=== PATIENT | male | born 1945 | race Caucasian/White ===

== ENCOUNTER 2017-02-15 07:00 | Inpatient (IN) | payer OTHER ==
[~2017-02-15] VITALS: Ht 177.8 cm; Wt 76.2 kg
--- NOTE | 2017-02-27 08:51 | Admission Core Measures ---
Admission Meds I reviewed the following Meds: Current Medications Sig/Giuliana Start time Last Medication Dose Stop Time Status Admin Acetaminophen 975 MG ONCE 02/27 NR (Tylenol) 02/27 2359 Cefazolin Sodium 2,000 MG ONCE 02/27 NR (Kefzol-Ancef Inj) 02/27 2359 Oxycodone HCl 10 MG ONCE 02/27 0000 NR (Roxicodone) 02/27 2359 Acute Coronary Syndrome Inclusion Criteria ACS Diagnosis No Inpatient Core Measures LDL Reminder: If No, please order W/I first 24hr of stay Congestive Heart Failure Inclusion Criteria CHF Diagnosis No Cerebrovascular accident Inclusion Criteria CVA/TIA Diagnosis No Inpatient Core Measures Bedside Swallow Eval Reminder: If BSE failed, place ST order Antithrombotic Reminder: Order Antithrombotic Medication by end of day 2 Antithrombotic Reminder: Document Reason Antithrombotic Not ordered by end of day 2 AFIB/Flutter Reminder: If Present, add to problem list AFIB/Flutter Reminder: Order Anticoag Medication for pts with AFIB/Flutter Atherosclerosis Reminder: If Present, add to problem list LDL Reminder: If No, please order W/I first 24hr of stay PT Order Reminder: If No, please order Venous thromboembolism Inpatient Core Measures VTE Risk Factors: Age > 40, [facility] prophylaxis d/t No contraindications No VTE Pharm Prophylaxis d/t No contraindications Inclusion Criteria - Per Current guidelines, there needs to be overlap - treatment for the first 5 days of Warfarin therapy. - Parenteral Anticoagulation (IV or SC) needs to be - given along with Warfarin therapy. VTE Diagnosis No VTE Type NONE VTE Confirmed by (Test) NONE Problem List As ranked by this Provider includes Assessment & Plan 1. Status post right hip replacement HOME MEDS Home Med List No Known Home Medications
--- NOTE | 2017-02-27 08:53 | Patient Discharge Instructions ---
Discharge Instructions General Discharge Information You were seen/treated for: Hip pain You had these procedures: Right total hip replacement Watch for these problems: temp>101, increased redness or drainage of wounds No bath, but you may shower: Yes Other wound care: Keep incisions clean and dry Special Instructions: Follow up with primary care physician within two weeks Diet Continue normal diet: Yes Activity Activity Self Limited: Yes Activity Limited to: Weight bear as tolerated Acute Coronary Syndrome Inclusion Criteria At DC or during hospital stay patient has or had the following: ACS DIAGNOSIS No Discharge Core Measures Meds if any: Prescribed or Continued at Discharge Meds if any: NOT Prescribed or Continued at Discharge Congestive Heart Failure Inclusion Criteria At DC or during hospital stay patient has or had the following: CHF DIAGNOSIS No Discharge Core Measures Meds if any: Prescribed or Continued at Discharge Meds if any: NOT Prescribed or Continued at Discharge Cerebrovascular accident Inclusion Criteria At DC or during hospital stay patient has or had the following: CVA/TIA Diagnosis No Discharge Core Measures Meds if any: Prescribed or Continued at Discharge Meds if any: NOT Prescribed or Continued at Discharge Venous thromboembolism Inclusion Criteria VTE Diagnosis No VTE Type NONE VTE Confirmed by (Test) NONE Discharge Core Measures - Per Current guidelines, there needs to be overlap - treatment for the first 5 days of Warfarin therapy. - If discharged on Warfarin prior to 5 days of - overlap therapy, the patient will need to be - assessed for post discharge needs including - *Post discharge parental anticoagulation - *Warfarin and/or parental anticoagulation education - *Follow up date to check INR post discharge At least 5 days overlap therapy as Inpatient No Meds if any: Prescribed or Continued at Discharge Note: Overlap Therapy is Warfarin and Anticoagulant Meds if any: NOT Prescribed or Continued at Discharge
[2017-02-27] MEDS ORDERED: ASPIRIN EC325 M2 PO ×2 (08:54→08:57)
[2017-02-27] MEDS ORDERED: COLACE100 M1 PO ×2 (08:54→08:57)
[2017-02-27] MEDS ORDERED: MIRALAX17 G1 PO ×2 (08:55→08:57)
[2017-02-27] MEDS ORDERED: MS CONTIN15 M2 PO ×2 (08:56→09:32)
[2017-02-27] MEDS ORDERED: DILAUDID2 M1 PO ×2 (08:56→09:31)
--- NOTE | 2017-02-27 09:53 | Surg Short-stay <48hrs Dis Sum ---
Visit Information Visit Dates Admission Date: 02/27/17 Discharge Date: 02/27/17 Surgical Short Stay DC Summary Admission Diagnosis: Joint pain Final Diagnosis: same, s/p R THR Procedure(s): R THR - see operative report Summary/Significant Findings: Pt underwent R VIANEY by Dr Shepard on 02/27. He tolerated the procedure well and was brought to the PACU in stable condition. Post op he was able to void spontaneously, his pain was well controlled with medication and he worked with physical therapy. He was deemed stable for discharge and was cleared by PT to go home with services. Follow up instructions given. Condition at Discharge: good Discharge Disposition: home health services Discharge instructions provided to patient/family: Yes Post discharge follow-up plan: Keep scheduled appointment with Dr Shepard in 6 weeks. Call earlier if needed. Follow up with PCP within two weeks of discharge.
--- NOTE | 2017-02-27 11:58 | RADIOLOGY REPORT ---
EXAMINATION: XR HIP, RIGHT CLINICAL INFORMATION: Status post right hip arthroplasty COMPARISON: None TECHNIQUE: Two views of the right hip. FINDINGS: Prosthesis is in place. No evidence of periprosthetic acute osseous abnormality. The lateralmost screw extends beyond the cortex of the right superior acetabulum. Intact hardware. Air within the soft tissues and joint space compatible with recent postoperative change. IMPRESSION: Postoperative changes right total hip arthroplasty.
--- NOTE | 2017-02-27 12:45 | NUR ---
PT ARRIVED TO FLOOR VIA STRETCHER, AO, RA, NO C/O PAIN, IV INTACT, IV FLUIDS RUNNING, VSS, ADMISSION COMPLETE, ORIENTED TO ROOM AND CALL LIGHT, WILL CONTINUE TO MONITOR.
[2017-02-27 13:02] VITALS: BP 110/78
--- NOTE | 2017-02-27 13:11 | PN- Orthopedic ---
Subjective Subjective: Patient received on general surgical floor within the past hour. He is s/p R THR. He tolerated the procedure well and is presently without complaints. He specifically denies chest pain, shortness of breath, and difficulty breathing. He denies nausea and vomitting. He has yet to void. He has yet to eat. He has yet to ambulate with PT. He does state, however, that if possible, he is interested in a discharge to home with home health services today. Objective Vital Signs and I&Os Vital Signs Date Time Temp Pulse Resp B/P Pulse O2 O2 Flow FiO2 Ox Delivery Rate 02/27 1302 97.6 79 18 110/78 95 Room Air Physical Exam: General: Alert and oriented x3, no acute distress Cardiac: RRR, s1s2 Pulm: CTA bilaterally Abdomen: Non-tender, non-distended Extremiteis: Moves all extremities, distal sensations intact. Motor 5/5 in plantar and dorsi flexion. Skin warm and well perfused. DP pulses palpable bilaterally. Bilateral calves soft and non-tender Surgical Site: Right groin, dressing dry and intact. Thigh compartment soft. Assessment/Plan Assessment/Plan This is a 71 year old male, POD 0, s/p Right total hip replacement. Interested in d/c to home today. -ASA 325 bid to start this evening as DVT ppx -Ancef 2g IV q8 hours while in hospital for first 24 hours postop -Dilaudid po 2-4 mg q4-6hr prn for pain -Morphine for breakthrough pain, iv, if needed -Colace and miralax for bowel regimen -OOB with PT, discharge pending clearance -DTV by 3pm, discharge pending void Core Measures/Miscellaneous Venous Thromboembolism VTE Risk Factors: Age > 40, Surgery VTE Contraindications: No Contraindications VTE Diagnosis: No VTE Type: NONE VTE Confirmed by (Test): NONE Beta Carla Is Beta Carla a Home Med? No Antibiotics Is Patient on Antibiotics? Yes If Yes: prophylaxis
--- NOTE | 2017-02-27 13:50 | Operative Report ---
Operative/Inv Procedure Report Surgery Date: 02/27/17 Name of Procedure: Right total hip replacement Pre-Operative Diagnosis: Primary right hip DJD Post-Operative Diagnosis: Same Estimated Blood Loss: 350 Surgeon/Adult Manager: NAYE TRUONG,COBY Nicolas Anesthesia: block Operative/Procedure Note Note: Description of Procedure: The patient was taken to the operating room and positively identified. After induction of spinal anesthesia and administration of appropriate pre-operative antibiotics, the patient was positioned supine on the operating room table and all bony prominences were well padded. After performing a surgical timeout, the right lower extremity was prepped and draped in the usual sterile fashion. A direct anterior approach was made to the right hip. The incision was carried sharply through superficial soft tissues to the level of the fascia. Meticulous hemostasis was maintained with Bovie electocautery. The fascia over the tensor fascia kevin muscle was opened sharply and the interval between the TFL and the sartorius was entered bluntly taking care to stay lateral to the lateral femoral cutaneous nerve. Retractors were placed around the femoral neck and the pericapsular fat was identified. The ascending branches of the lateral femoral circumflex vessels were identified and carefully coagulated. The pericapsular fat and anterior capsule were then resected. A napkin ring osteotomy was performed and the femoral head was removed without difficulty. Attention was then turned to the acetabulum. After appropriate placement of retractors, the acetabulum was exposed. Soft tissue was cleaned from the acetabular margin and notch. Overhanging osteophytes were removed and the teardrop was exposed. The acetabulum was then sequentially reamed to accept a 60 mm Darin Tritanium hemispherical cluster hole shell. There were 2 large subchondral cysts that were filled with a combination of autograft from the femoral head and crushed cancellus allograft. This was reverse reamed into place. The cup was impacted into place in the appropriate position and fitted multiple screws for supplemental fixation. It was then fit ith a 36 mm Trident X3 zero degree polyethylene insert. Attention was then turned to the femur. After performing the appropriate ligament releases, the proximal femur was exposed. It was then sequentially broached to accept a size 9 Darin accolade 2 stem. This was trialed for leg length and stability. The trial component was removed and the final component was impacted into place. The trunnion was carefully cleaned and fit with a 36 mm, +0 Biolox delta ceramic femoral head. The hip was reduced and put through a full range of motion and found to be stable. The articular space was then irrigated with sterile saline. The periarticular soft tissues were infilitrated with Marcaine. The fascial layer was closed with interrupted #1 vicryl suture and the skin was re-approximated with interrupted 2 -0 vicryl. The skin was closed with a running 3-0 V-Lock suture. Steri-strips and a sterile dressing were applied. The patient was awakened and taken to the recovery room in satisfactory condition.
[2017-02-27 14:33] VITALS: BP 118/72
--- NOTE | 2017-02-27 15:30 | NUR ---
PT REPORTED TO THIS RN THAT PT WAS INCONT OF URINE X1,AND WAS ABLE TO VOID 50ML TO URINAL AFTER. PA AWARE- PT CLEARED FOR D/C. WILL CONTINUE TO MONITOR.
== END 2017-02-27 16:18 | disposition home health service (06) | DRG 470 ==
LOC: ENRESERVDT → ENRESERVTM → SDA 02-27 02:10 → 2NA 02-27 12:30
PROVIDERS: ADMIT Orthopaedic Surgery
PROC: 0SR904A Replacement of Right Hip Joint with Ceramic on Polyethylene Synthetic Substitute, Uncemented, Open Approach (ICD-10-PCS; principal; 2017-02-27)
DX: M16.11 Unilateral primary osteoarthritis, right hip (principal)
CPT/HCPCS: 2NAP; 73502-RT; 88304; 97116-GO; 97161-GP; 97530-GO; J0690; J0735; J1100; J2405; J7042